=== PATIENT | female | born 1970 | race Caucasian/White ===

== ENCOUNTER 2019-08-01 19:54 | Emergency (ER) | payer OTHER, MEDICAID ==
[~2019-08-01] VITALS: Ht 149.9 cm; Wt 122.5 kg
[2019-08-01 20:00] VITALS: Ht 149.9 cm; Wt 122.5 kg
[2019-08-01 20:39] LABS: BASOPHIL % 0.5 % (0-2); PLATELET COUNT 315 x10^3mcL (130-400); RED CELL DISTRIBUTION WIDTH 13.5 % (11.5-14.5)
[2019-08-01 20:51] LABS: CALCIUM 9.2 mg/dL (8.5-10.1); CARBON DIOXIDE 25.5 mmol/L (21-32); CREATININE SERUM 1.1 mg/dL (0.6-1.0); POTASSIUM SERUM 4.2 mmol/L (3.5-5.1)
[2019-08-01 20:56] LABS: BILIRUBIN TOTAL 0.19 mg/dL (0.20-1.00); TOTAL PROTEIN, SERUM 7.4 g/dL (6.4-8.2)
[2019-08-01 21:00] LABS: ALBUMIN 3.1 g/dL (3.4-5.0)
[2019-08-01 22:57] VITALS: BP 165/98
== END 2019-08-01 22:57 | disposition home or self-care (01) ==
LOC: ED 19:54
PROVIDERS: Emergency Medicine
DX: H92.01 Otalgia, right ear (principal); E11.9 Type 2 diabetes mellitus without complications; E78.00 Pure hypercholesterolemia, unspecified
CPT/HCPCS: 82962; J1885; J7030